=== PATIENT | female | born 1950 | race Caucasian/White ===

== ENCOUNTER → 2019-01-27 | Day surgery (SDC) | payer MEDICARE ==
[2019-01-24 12:01] LABS: BASOPHILS % 0.7 % (0.0-1.0); EOSINOPHILS # (AUTO) 0.1 (0.0-0.4); EOSINOPHILS % 1.9 % (0.0-6.0); HEMATOCRIT 41.7 % (34.2-44.1); HEMOGLOBIN 13.4 g/dL (12.0-16.0); MEAN CORPUSCULAR HEMOGLOBIN 29.8 pg (28-32); MEAN CORPUSCULAR HGB CONC 32.1 g/dL (31-35); MEAN CORPUSCULAR VOLUME 92.9 fL (81-99); MONOCYTES # (AUTO) 0.4 (0.2-0.8); MONOCYTES % 7.1 % (4.4-11.3); NEUTROPHILS # (AUTO) 3.3 (2.1-6.9); NEUTROPHILS % 56.1 % (38.7-80.0); PLATELET COUNT 237 x10e3/uL (140-360); RED BLOOD COUNT 4.49 x10e6/uL (3.6-5.1); RED CELL DISTRIBUTION WIDTH 13.7 % (11.7-14.4)
[2019-01-24 12:18] LABS: ANION GAP 11.6 mmol/L (8-16); BLOOD UREA NITROGEN 12 mg/dL (7-26); BUN/CREATININE RATIO 16 (6-25); CALCIUM 9.2 mg/dL (8.4-10.2); CARBON DIOXIDE 28 mmol/L (22-29); CHLORIDE 105 mmol/L (98-107); CREATININE, SERUM 0.77 mg/dL (0.57-1.11); EST GLOMERULAR FILTRATION RATE > 60 ML/MIN (60-); GLUCOSE 103 mg/dL (74-118); POTASSIUM 4.6 mmol/L (3.5-5.1); SODIUM 140 mmol/L (136-145)
--- NOTE | 2019-01-24 13:16 | Diagnostic Imaging Report ---
EXAMINATION: CHEST 2 VIEWS INDICATION: Pre-op. COMPARISON: None FINDINGS: Lateral radiograph is somewhat limited by motion. TUBES and LINES: None. LUNGS: Lungs are well inflated. Lungs are clear. There is no evidence of pneumonia or pulmonary edema. PLEURA: No pleural effusion or pneumothorax. HEART AND MEDIASTINUM: The cardiomediastinal silhouette is unremarkable. There are atherosclerotic calcifications within the aorta. BONES AND SOFT TISSUES: No acute osseous abnormality. Degenerative changes of bilateral shoulders. UPPER ABDOMEN: No free air under the diaphragm. IMPRESSION: No acute radiographic abnormality. Signed by: Dr. Almita Jordan MD on 01/24/2019 1:13 PM
[~2019-01-27] MED LIST: ASPIRIN325 MG PO; ATORVASTATIN CA20 MG PO; CLOPIDOGREL75 MG PO; CREON DR 24,001 EACH PO; DEXAMETHASONE SOD PHOS INJ 4 MG/ML VIAL ONE; DIPHENOXYLATE-1 EACH PO; FENTANYL CITRATE/PF 100MCG/2 ML INJ ONE; ISOSORBIDE MONO30 MG PO; KETOROLAC TROMETHAMINE 30 MG/ML VIAL ONE; LABETALOL HCL 5 MG/ML 20ML VIAL ONE; LIDOCAINE HCL 2% LOCAL INJ 5 ML SDV VIAL INJ ONE; LISINOPRIL10 MG PO; METFORMIN HCL500 MG PO; METOPROLOL TART50 MG PO; MIDAZOLAM HCL 2 MG/2 ML VIAL ONE; ONDANSETRON HCL INJ 2MG/ML 2ML 2 MG/ML VIAL ONE; PROPOFOL IV EMULSION 10 MG/ML 20 ML VIAL ONE; RANEXA500 MG PO; SEVOFLURANE INHAL SOLN 250 ML PEN BTL ONE; SILVER NITRATE SWABS ONE
--- OUTSIDE RECORDS SUMMARY | 2019-01-27 05:30 | XMS REPORT ---
Author Author [facility] Organization [facility] Address Unknown Phone Unavailable Care Team Providers Care Assistant Plant Controller Name Role Phone Elvis CARLIN Unavailable Unavailable Payers Payer Name Policy Type Policy Number Effective Date Expiration Date Problems This patient has no known problems. Allergies, Adverse Reactions, Alerts Allergy Name Allergy Type Status Severity Reaction(s) Onset Date Inactive Date Treating Clinician Comments penicillin DA Active U 2016-08-29 00:00:00 Medications This patient has no known medications. Results Test Description Test Time Test Comments Text Results Atomic Results Result Comments CHEST 2 VIEWS 2019-01-24 13:11:00 [facility] [address] [address] Patient Name: LEIGHTON FRAZIER MR #: [id number] : 1950 Age/Sex: 68/F Req #: [id number] Adm Physician: Ordered by: WILLIE CARLIN MD Report #: [id number] Location: OR Room/Bed: Procedure: [id number] DX/CHEST 2 VIEWS Exam Date: 01/24/19 Exam Time: 1110 REPORT STATUS: Signed EXAMINATION: CHEST 2 VIEWS INDICATION: Pre-op. COMPARISON: None FINDINGS: Lateral radiograph is somewhat limited by motion. TUBES and LINES: None. LUNGS: Lungs are well inflated. Lungs are clear. There is no evidence of pneumonia or pulmonary edema. PLEURA: No pleural effusion or pneumothorax. HEART AND MEDIASTINUM: The cardiomediastinal silhouette is unremarkable. There are atherosclerotic calcifications within the aorta. BONES AND SOFT TISSUES: No acute osseous abnormality. Degenerative changes of bilateral shoulders. UPPER ABDOMEN: No free air under the diaphragm. IMPRESSION: No acute radiographic abnormality. Signed by: Dr. Pam Maldonado MD on 01/24/2019 1:13 PM Dictated By: PAM MALDONADO MD [id number] Transcribed By: SVETA on 01/24/19 1313 COPY TO: WILLIE CARLIN MD
--- OUTSIDE RECORDS SUMMARY | 2019-01-27 05:30 | XMS REPORT | Clinical Summary ---
Author Author [facility] Organization [facility] Address Unknown Phone Unavailable Care Team Providers Care Respiratory Services Manager Name Role Phone Stephon Guzman DO PCP Allergies Comments Active Allergy Reactions Severity Noted Date Penicillins 09/02/2018 Medications End Date Status Medication Sig Dispensed Refills Start Date Active atorvastatin (LIPITOR) 80 Take 80 mg by 3 MG tablet mouth daily. 8 Active clopidogrel (PLAVIX) 75 Take 75 mg by 3 mg tablet mouth daily. 8 Active diphenoxylate-atropine Take 1 tablet 1 (LOMOTIL) 2.5-0.025 mg by mouth 8 per tablet every 12 (twelve) hours as needed. Active isosorbide mononitrate Take 30 mg by 0 (IMDUR) 30 MG 24 hr mouth daily. 8 tablet Active lisinopril Take 40 mg by 3 (PRINIVIL,ZESTRIL) 40 mg mouth daily. 8 tablet Active metFORMIN (GLUCOPHAGE) TAKE 1 TABLET 0 500 mg tablet BY MOUTH 8 EVERY DAY WITH MEALS Active metoprolol tartrate Take 50 mg by 3 (LOPRESSOR) 50 mg tablet mouth 2 (two) 8 times a day. Active oxybutynin (DITROPAN) 5 Take 5 mg by 3 MG tablet mouth daily. 8 Active pantoprazole (PROTONIX) Take 40 mg by 2 40 MG EC tablet mouth daily. 8 Active RANEXA 500 mg 12 hr ER Take 500 mg 1 tablet by mouth 8 daily. Active Problems No known active problems Encounters Care Team Description Date Type Specialty Kurt Corona MD Luczak, Swetha Cavazos, GURPREET Pain of lower extremity, unspecified laterality (Primary Dx); Venous insufficiency 09/02/2018 Office Visit Cardiovascular Lesley Bueno MA Swelling of lower leg (Primary Dx) 07/29/2018 Orders Only Cardiovascular after 01/26/2018 Family History Medical History Relation Name Comments Diabetes Brother Heart disease Father Cancer Mother Diabetes Sister Hypertension Sister Relation Name Status Comments Brother Father Mother Sister Social History Date Tobacco Use Types Packs/Day Years Used Never Smoker Smokeless Tobacco: Never Used Sex Assigned at Date Recorded Not on file Industry Job Start Date Occupation Not on file Not on file Not on file Travel End Travel History Travel Start No recent travel history available. Last Filed Vital Signs Time Taken Vital Sign Reading 09/02/2018 4:57 PM [employer] Blood Pressure 156/77 09/02/2018 4:57 PM [employer] Pulse 62 - Temperature - 09/02/2018 4:57 PM [employer] Respiratory Rate 12 09/02/2018 4:57 PM [employer] Oxygen Saturation 98% - Inhaled Oxygen - Concentration 09/02/2018 4:57 PM [employer] Weight 90.9 kg (200 lb 8 oz) 09/02/2018 4:57 PM CH[employer]EN F[employer] Height 154.9 cm (5' 1") 09/02/2018 4:57 PM [employer]EN [employer] Body Mass Index 37.88 Plan of Treatment Health Maintenance Due Date Last Done Comments BREAST CANCER SCREENING 1999 COLON CANCER SCREENING 1999 SHINGLES VACCINES (#1) 1999 65+ PNEUMOCOCCAL VACCINE 2014 (1 of 2 - PCV13) PNEUMOCOCCAL 2014 POLYSACCHARIDE VACCINE AGE 65 AND OVER INFLUENZA VACCINE 05/26/2019 Procedures Comments Procedure Name Priority Date/Time Associated Diagnosis US DUPLEX VENOUS LOWER Routine 09/02/2018 Swelling of lower leg EXTREMITY REFLUX 2:38 PM CHICKEN FANCIER BILATERAL after 01/26/2018 Results * Us duplex venous lower extremity reflux (09/02/2018 2:38 PM CHICKEN FANCIER) Narrative Performed At [facility] Lower Extremity Venous Duplex Report [address] [place] [address], [address], [place] [address] [facility].Name:Valentina JUSTICE.ID:[id number] St.Date: 09/02/2018 Refer.MD:KURT CORONA MD Exam Time: 1:27:00 PMStudy Type:LE Venous Height:61inWeight:200.5l b BSA: 1.89 m2 DOBAge:1950,68Y Sex: FEMALESonogrphr: Felisa Coats RVT TapeVol: TG, CPT - 4: 58938 Echo Event ID:[id number] Order ID:[id number] Reason for Study:Right lower extremity swelling and pain from the groin down to the knee. Bilateral lower extremity spider veins. Race:C SUMMARY: DUPLEX SCAN OBSERVATIONS The exam was performed with the patient in the steep reverse Trendelenburg position.Mckeon scale and color Doppler imaging of bilateral lower extremities demonstrates the following: Deep Veins RightLeft Valvular reflux CFV Incompetent Incompetent Normal < or equal to 500 ms Femoral mid PatentPatentAbnormal (Incompetent) > 500 ms Profunda Incompetent Patent Popliteal PatentPatent PT (prox) PatentPatent PT (dist) PatentPatent Peroneal Not visualized Not visualized Superficial Veins GSVIncompetent Incompetent (at and immediately below the saphenofemoral junction) (1100 ms) (2200 ms) GSV Patent Patent (thigh) GSV Patent Patent (lower leg) SSV Patent Patent (at and immediately below the saphenopopliteal junction) (0000 ms) (0000 ms) RIGHT:The above visualized veins are compressible with no evidence of echogenic material within the vein lumen. Colorflow and Doppler signals demonstrate valvular reflux in the common femoral, profunda femoral and great saphenous vein at the saphenofemoral junction.No incompetent perforating veins are noted. LEFT:The above visualized veins are compressible with no evidence of echogenic material within the vein lumen. Colorflow and Doppler signals demonstrate valvular reflux in the common femoral and great saphenous vein at the saphenofemoral junction.No incompetent perforating veins are noted. PHYSICIAN INTERPRETATION: 1. Peroneal veins not visualized, cannot rule out DVT in these veins bilaterally. 2.No evidence of venous thrombosis,in the remaining visualized veins, bilaterally. 3.Valvular reflux, right common femoral, profunda femoral, and great saphenous (above) knee veins. 4.Valvular reflux, left common femoral and great saphenous (above) knee veins. 5.Doppler signals obtained in the bilateral common femoral vein are comparable. 6.See table and diagram for vein measurements. 7. Technically difficult study due to body habitus and patients pain level. MEASUREMENTS: LEVEINS Left Dist Calf Dist Calf GSV A0.32 cm Right Dist Calf Dist Calf GSV A0.38 cm Left Prox Calf Prox Calf LSV A0.36 cm Prox Calf GSV A0.19 cm Right Prox Calf Prox Calf LSV A0.28 cm Prox Calf GSV A0.32 cm Left Popliteal Fossa Popliteal Fossa0.38 cm Right Popliteal Fossa Popliteal Fossa0.25 cm Left Prox Thigh Prox Thigh GSV0.4 cm Right Prox Thigh Prox Thigh GSV 0.39 cm Left Mid Thigh Mid Thigh GSV A0.31 cm Right Mid Thigh Mid Thigh GSV A 0.4 cm Left Knee Knee GSV AP 0.33 cm Right Knee Knee GSV AP 0.39 cm Left Mid Calf Mid Calf GSV AP0.23 cm Mid Calf LSV AP0.38 cm Right Mid Calf Mid Calf GSV AP 0.3 cm Mid Calf LSV AP0.25 cm Left SFJ SFJ GSV AP0.61 cm Right SFJ SFJ GSV AP 0.6 cm Left Distal Calf SSV Dist Calf LSV A0.32 cm Right Calf Dist SSV Dist Calf LSV A0.21 cm Left Dist Thigh Dist Thigh GSV 0.31 cm Right Dist Thigh Dist Thigh GSV 0.42 cm Signed 09/17/2018 05:47 PM Kurt Corona MD, RPVI Procedure Note Interface, Radiology Results In - 09/17/2018 5:47 PM [facility] Lower Extremity Venous Duplex Report [address] [place] [address], [address], [place], [place] [address] Pat.Name: ITZEL JUSTICE Pat.ID: [id number] .Date: 09/02/2018 Refer.MD: KURT CORONA MD Exam Time: 1:27:00 PM Study Type:LE Venous Height: 61in Weight: 200.5lb BSA: 1.89 m2 Age: 10 1950,68Y Sex: FEMALE Sonogrphr: Felisa Coats, RVT Tape Vol: TG, CPT - 4: 13369 Echo Event ID:[id number] Order ID: [id number] Reason for Study:Right lower extremity swelling and pain from the groin down to the knee. Bilateral lower extremity spider veins. Race: C SUMMARY: DUPLEX SCAN OBSERVATIONS The exam was performed with the patient in the steep reverse Trendelenburg position. Mckeon scale and color Doppler imaging of bilateral lower extremities demonstrates the following: Deep Veins Right Left Valvular reflux CFV Incompetent Incompetent Normal < or equal to 500 ms Femoral mid Patent Patent Abnormal (Incompetent) > 500 ms Profunda Incompetent Patent Popliteal Patent Patent PT (prox) Patent Patent PT (dist) Patent Patent Peroneal Not visualized Not visualized Superficial Veins GSV Incompetent Incompetent (at and immediately below the saphenofemoral junction) (1100 ms) (2200 ms) GSV Patent Patent (thigh) GSV Patent Patent (lower leg) SSV Patent Patent (at and immediately below the saphenopopliteal junction) (0000 ms) (0000 ms) RIGHT: The above visualized veins are compressible with no evidence of echogenic material within the vein lumen. Colorflow and Doppler signals demonstrate valvular reflux in the common femoral, profunda femoral and great saphenous vein at the saphenofemoral junction. No incompetent perforating veins are noted. LEFT: The above visualized veins are compressible with no evidence of echogenic material within the vein lumen. Colorflow and Doppler signals demonstrate valvular reflux in the common femoral and great saphenous vein at the saphenofemoral junction. No incompetent perforating veins are noted. PHYSICIAN INTERPRETATION: 1. Peroneal veins not visualized, cannot rule out DVT in these veins bilaterally. 2. No evidence of venous thrombosis, in the remaining visualized veins, bilaterally. 3. Valvular reflux, right common femoral, profunda femoral, and great saphenous (above) knee veins. 4. Valvular reflux, left common femoral and great saphenous (above) knee veins. 5. Doppler signals obtained in the bilateral common femoral vein are comparable. 6. See table and diagram for vein measurements. 7. Technically difficult study due to body habitus and patients pain level. MEASUREMENTS: LEVEINS Left Dist Calf Dist Calf GSV A 0.32 cm Right Dist Calf Dist Calf GSV A 0.38 cm Left Prox Calf Prox Calf LSV A 0.36 cm Prox Calf GSV A 0.19 cm Right Prox Calf Prox Calf LSV A 0.28 cm Prox Calf GSV A 0.32 cm Left Popliteal Fossa Popliteal Fossa 0.38 cm Right Popliteal Fossa Popliteal Fossa 0.25 cm Left Prox Thigh Prox Thigh GSV 0.4 cm Right Prox Thigh Prox Thigh GSV 0.39 cm Left Mid Thigh Mid Thigh GSV A 0.31 cm Right Mid Thigh Mid Thigh GSV A 0.4 cm Left Knee Knee GSV AP 0.33 cm Right Knee Knee GSV AP 0.39 cm Left Mid Calf Mid Calf GSV AP 0.23 cm Mid Calf LSV AP 0.38 cm Right Mid Calf Mid Calf GSV AP 0.3 cm Mid Calf LSV AP 0.25 cm Left SFJ SFJ GSV AP 0.61 cm Right SFJ SFJ GSV AP 0.6 cm Left Distal Calf SSV Dist Calf LSV A 0.32 cm Right Calf Dist SSV Dist Calf LSV A 0.21 cm Left Dist Thigh Dist Thigh GSV 0.31 cm Right Dist Thigh Dist Thigh GSV 0.42 cm Signed 09/17/2018 05:47 PM Kurt Corona MD, VI Performing Organization Address City/State/Zipcode Phone Number [facility] [address] [place] [address] after 01/26/2018 Insurance Payer Benefit Subscriber ID Type Phone Address Plan / Group [employer] CIGNA xxxxxxxx O HEALTHSPRI NG O MCR ADV Advance Directives Patient has advance care planning documents on file. For more information, esme thompson contact: Yair Mora [address] [place] [address]
[2019-01-27 11:30] VITALS: BP 174/78
--- NOTE | 2019-02-11 03:43 | Operative Report ---
DATE OF PROCEDURE: 01/27/2019 SURGEON: Olya Doran MD DENTAL LABORATORY ASSISTANT: None. PREOPERATIVE DIAGNOSES: Endometrial polyp. POSTOPERATIVE DIAGNOSES: Endometrial polyp. PROCEDURE PERFORMED: Dilatation and curettage, and hysteroscopic polypectomy. ANESTHESIA: General. ESTIMATED BLOOD LOSS: 30 mL. COMPLICATIONS: None. FINDINGS: Large endometrial polyp. SPECIMENS: Endometrial polyp with curettings. INDICATIONS: The patient is a 68-year-old postmenopausal female, having postmenopausal bleeding and noted during endometrial biopsy in the office to have a large endometrial polyp that could not be removed within the office setting. PROCEDURE NOTE: The risks, benefits, indications, and alternatives of the procedure were discussed with the patient and consent was obtained. The patient was taken to the operating room, where general anesthesia was obtained. The patient was prepped and draped in typical sterile fashion in the dorsal lithotomy position with candy-cane stirrups. Time-out was done. The patient's bladder was drained with straight catheter prior to the procedure. A weighted speculum was then placed in the vagina and the anterior lip of the cervix was grasped with single tooth tenaculum. The cervix was then sequentially dilated with Hegar dilators in order to advance the TruClear hysteroscope to level the uterine fundus, uterine cavity, was distended with normal saline and explored with the above noted findings. The TruClear device was then used to morcellate and remove the polyps under direct visualization. A sharp curettage was then performed and all curettings were sent for pathology. A survey of the uterine cavity then revealed a normal appearing and intact cavity. All instruments were removed from the patient's vagina. The tenaculum site on the cervix was noted to be bleeding and 2 separate 0-Vicryl sutures were placed at the tenaculum sites in order to ensure hemostasis. The patient was then awakened and brought to the recovery room in stable condition. All sponge, lap, needle, and instrument counts were correct x2. Olya Doran MD [facility]/MODL /[id number]
== END | disposition home or self-care (01) ==
LOC: OR 05:29
PROVIDERS: ATTEND Obstetrics & Gynecology Obstetrics
DX: N84.0 Polyp of corpus uteri (principal); N95.0 Postmenopausal bleeding; R93.89 Abnormal findings on diagnostic imaging of other specified body structures; E11.9 Type 2 diabetes mellitus without complications; Z88.0 Allergy status to penicillin; Z01.810 Encounter for preprocedural cardiovascular examination; Z01.812 Encounter for preprocedural laboratory examination; Z01.811 Encounter for preprocedural respiratory examination; Z79.84 Long term (current) use of oral hypoglycemic drugs
CPT/HCPCS: 36415 ×2; 58558; 71046; 80048; 82948; 85025; 88305; 93005; J1100; J1885; J2001; J2250; J2405; J2704; J3490

== ENCOUNTER 2019-03-08 06:06 | Inpatient (IN) | payer MEDICARE ==
[2019-03-07 11:32] LABS: BASOPHILS % 0.6 % (0.0-1.0); EOSINOPHILS # (AUTO) 0.1 (0.0-0.4); EOSINOPHILS % 1.7 % (0.0-6.0); HEMATOCRIT 36.8 % (34.2-44.1); HEMOGLOBIN 11.9 g/dL (12.0-16.0); LYMPHOCYTES # (AUTO) 1.3 (1.0-3.2); MEAN CORPUSCULAR HEMOGLOBIN 29.7 pg (28-32); MEAN CORPUSCULAR HGB CONC 32.3 g/dL (31-35); MEAN CORPUSCULAR VOLUME 91.8 fL (81-99); MONOCYTES # (AUTO) 0.3 (0.2-0.8); MONOCYTES % 5.7 % (4.4-11.3); NEUTROPHILS # (AUTO) 3.1 (2.1-6.9); NEUTROPHILS % 64.8 % (38.7-80.0); PLATELET COUNT 206 x10e3/uL (140-360); RED BLOOD COUNT 4.01 x10e6/uL (3.6-5.1); RED CELL DISTRIBUTION WIDTH 13.4 % (11.7-14.4)
[2019-03-07 11:47] LABS: ANION GAP 12.2 mmol/L (8-16); BLOOD UREA NITROGEN 13 mg/dL (7-26); BUN/CREATININE RATIO 17 (6-25); CALCIUM 9.1 mg/dL (8.4-10.2); CARBON DIOXIDE 27 mmol/L (22-29); CHLORIDE 107 mmol/L (98-107); CREATININE, SERUM 0.76 mg/dL (0.57-1.11); EST GLOMERULAR FILTRATION RATE > 60 ML/MIN (60-); GLUCOSE 99 mg/dL (74-118); POTASSIUM 4.2 mmol/L (3.5-5.1); SODIUM 142 mmol/L (136-145)
[~2019-03-08] VITALS: Ht 154.9 cm; Wt 92.5 kg
[~2019-03-08 06:06] MED LIST changes: -DEXAMETHASONE SOD PHOS INJ 4 MG/ML VIAL ONE; -FENTANYL CITRATE/PF 100MCG/2 ML INJ ONE; -KETOROLAC TROMETHAMINE 30 MG/ML VIAL ONE; -LABETALOL HCL 5 MG/ML 20ML VIAL ONE; -LIDOCAINE HCL 2% LOCAL INJ 5 ML SDV VIAL INJ ONE; -MIDAZOLAM HCL 2 MG/2 ML VIAL ONE; -ONDANSETRON HCL INJ 2MG/ML 2ML 2 MG/ML VIAL ONE; -PROPOFOL IV EMULSION 10 MG/ML 20 ML VIAL ONE; -SEVOFLURANE INHAL SOLN 250 ML PEN BTL ONE; -SILVER NITRATE SWABS ONE
--- OUTSIDE RECORDS SUMMARY | 2019-03-08 06:10 | XMS REPORT | Clinical Summary ---
Author Author [facility] Organization [facility] Address Unknown Phone Unavailable Care Team Providers Care Improvement Analyst Name Role Phone Stephon Guzman DO PCP [...] (Primary Dx) 07/29/2018 Orders Only Cardiovascular after 03/07/2018 Family History Medical History Relation Name Comments [...] Taken Vital Sign Reading 09/02/2018 4:57 PM MINE INSPECTOR Blood Pressure 156/77 09/02/2018 4:57 PM MINE INSPECTOR Pulse 62 - Temperature - 09/02/2018 4:57 PM MINE INSPECTOR Respiratory Rate 12 09/02/2018 4:57 PM MINE INSPECTOR Oxygen Saturation 98% - Inhaled Oxygen - Concentration 09/02/2018 4:57 PM MINE INSPECTOR Weight 90.9 kg (200 lb 8 oz) 09/02/2018 4:57 PM MINE INSPECTOR Height 154.9 cm (5' 1") 09/02/2018 4:57 PM MINE INSPECTOR Body Mass Index 37.88 Plan of Treatment [...] of lower leg EXTREMITY REFLUX 2:38 PM MINE INSPECTOR BILATERAL after 03/07/2018 Results * Us duplex venous lower extremity reflux (09/02/2018 2:38 PM MINE INSPECTOR) Narrative Performed At [facility] Lower Extremity Venous Duplex Report [address] [place] [address], [address], [place] [address] [facility].Name:Valentina JUSTICE.ID:[id number] St.Date: 09/02/2018 Refer.MD:KURT CORONA MD Exam Time: 1:27:00 PMStudy Type:LE Venous Height:61inWeight:200.5l b BSA: 1.89 m2 DOBAge:1950,68Y Sex: FEMALESonogrphr: Felisa Coats RVT TapeVol: TG, CPT - 4: 88004 Echo Event ID:[id number] Order ID:[id number] Reason for Study:Right lower extremity swelling and [...] Radiology Results In - 09/17/2018 5:47 PM [facility] Lower Extremity Venous Duplex Report [address] [place] [address], [address], [place], [place] [address] Pat.Name: ITZEL JUSTICE Pat.ID: [id number] .Date: 09/02/2018 Refer.MD: KURT CORONA MD Exam Time: 1:27:00 PM Study Type:LE Venous Height: 61in Weight: 200.5lb BSA: 1.89 m2 Age: 10 1950,68Y Sex: FEMALE Sonogrphr: Felisa Coats, RVT Tape Vol: TG, CPT - 4: 80469 Echo Event ID:[id number] Order ID: [id number] Reason for Study:Right lower extremity swelling and [...] Address City/State/Zipcode Phone Number [facility] [address] [place] [address] after 03/07/2018 Insurance Payer Benefit Subscriber ID Type Phone Address Plan / Group [employer] CIGNA xxxxxxxx O HEALTHSPRI NG O MCR ADV Advance Directives Patient has advance care planning documents on file. For more information, esme thompson contact: Yair Mora [address] [place] [address]
[2019-03-08] MEDS ORDERED: CELECOXIB 200 MG CAP ONE (06:29)
[2019-03-08] MEDS ORDERED: DEXAMETHASONE SOD PHOS 10 MG/1 ML VIAL ONE (06:29)
[2019-03-08] MEDS ORDERED: VANCOMYCIN 1GM/NS 250 ML 250 ML ONE (06:30)
[2019-03-08] MEDS ORDERED: GABAPENTIN 300 MG CAP ONE (06:30)
[2019-03-08] MEDS ORDERED: VANCOMYCIN HCL 1,000 MG ONE (06:42)
[2019-03-08] MEDS ORDERED: TRANEXAMIC ACID 1,000 MG/10 ML ML ONE (06:42)
[2019-03-08] MEDS ORDERED: BACITRACIN 50,000 UNIT VIAL ONE (06:43)
[2019-03-08] MEDS ORDERED: ROPIVACAINE 246.25 MG, EPINEPHRINE HCL 1:1000 1ML 0.5 MG, CLONIDINE HCL 0.08 MG, KETORO... INJ ONE ×5 (07:00)
[2019-03-08] MEDS ORDERED: SODIUM CHLORIDE 0.9% 500ML 500 ML ONE (07:04)
[2019-03-08] MEDS ORDERED: BUPIVACAINE 7.5MG/ML /DEXTROSE 82.5MG/ML 2 ML AMP INJ ONE (07:32)
[2019-03-08] MEDS: SODIUM CHLORIDE 0.9% 1000ML 1,000 ML IV SCH ×2 (09:24→17:35)
[2019-03-08] MEDS: VANCOMYCIN 1GM/NS 250 ML 250 ML IV SCH ×2 (09:30→21:17)
[2019-03-08] MEDS ORDERED: DIPHENHYDRAMINE HCL INJ 50 MG/ML VIAL IM/IV PRN (09:30)
[2019-03-08] MEDS ORDERED: KETOROLAC TROMETHAMINE 30 MG/ML VIAL IV PRN (09:30)
[2019-03-08] MEDS ORDERED: PROMETHAZINE HCL (IM) 25 MG/ML VIAL INJ PRN (09:30)
[2019-03-08] MEDS ORDERED: ONDANSETRON HCL INJ 2MG/ML 2ML 2 MG/ML VIAL IV PRN (09:30)
[2019-03-08] MEDS ORDERED: HYDROCODONE/APAP 5MG-325MG TAB PO PRN (09:30)
[2019-03-08] MEDS ORDERED: ACETAMINOPHEN 650 MG SUPP PR PRN (09:30)
[2019-03-08] MEDS ORDERED: DOCUSATE SODIUM 100 MG CAP PO PRN (09:30)
--- OUTSIDE RECORDS SUMMARY | 2019-03-08 10:49 | XMS REPORT | Clinical Summary ---
Author Author [facility] Organization [facility] Address Unknown Phone Unavailable Care Team Providers Care Associate Merchandise Planner Name Role Phone Stephon Guzman DO PCP [...] Taken Vital Sign Reading 09/02/2018 4:57 PM CLOUD AUTOMATION TESTER Blood Pressure 156/77 09/02/2018 4:57 PM CLOUD AUTOMATION TESTER Pulse 62 - Temperature - 09/02/2018 4:57 PM CLOUD AUTOMATION TESTER Respiratory Rate 12 09/02/2018 4:57 PM CLOUD AUTOMATION TESTER Oxygen Saturation 98% - Inhaled Oxygen - Concentration 09/02/2018 4:57 PM CLOUD AUTOMATION TESTER Weight 90.9 kg (200 lb 8 oz) 09/02/2018 4:57 PM CLOUD AUTOMATION TESTER Height 154.9 cm (5' 1") 09/02/2018 4:57 PM CLOUD AUTOMATION TESTER Body Mass Index 37.88 Plan of Treatment [...] of lower leg EXTREMITY REFLUX 2:38 PM CLOUD AUTOMATION TESTER BILATERAL after 03/07/2018 Results * Us duplex venous lower extremity reflux (09/02/2018 2:38 PM CLOUD AUTOMATION TESTER) Narrative Performed At [facility] Lower Extremity Venous Duplex Report [address] [place] [address], [address], [place] [address] [facility].Name:Valentina JUSTICE.ID:[id number] St.Date: 09/02/2018 Refer.MD:KURT CORONA MD Exam Time: 1:27:00 PMStudy Type:LE Venous Height:61inWeight:200.5l b BSA: 1.89 m2 DOBAge:1950,68Y Sex: FEMALESonogrphr: Felisa Coats RVT TapeVol: TG, CPT - 4: 93367 Echo Event ID:[id number] Order ID:[id number] Reason for Study:Right lower extremity swelling and [...] Radiology Results In - 09/17/2018 5:47 PM [facility] Lower Extremity Venous Duplex Report [address] [place] [address], [address], [place], [place] [address] Pat.Name: ITZEL JUSTICE Pat.ID: [id number] .Date: 09/02/2018 Refer.MD: KURT CORONA MD Exam Time: 1:27:00 PM Study Type:LE Venous Height: 61in Weight: 200.5lb BSA: 1.89 m2 Age: 10 1950,68Y Sex: FEMALE Sonogrphr: Felisa Coats, RVT Tape Vol: TG, CPT - 4: 49480 Echo Event ID:[id number] Order ID: [id number] Reason for Study:Right lower extremity swelling and [...] Address City/State/Zipcode Phone Number [facility] [address] [place] [address] after 03/07/2018 Insurance Payer Benefit Subscriber ID Type Phone Address Plan / Group [employer] CIGNA xxxxxxxx O HEALTHSPRI NG O MCR ADV Advance Directives Patient has advance care planning documents on file. For more information, esme thompson contact: Yair Mora [address] [place] [address]
--- NOTE | 2019-03-08 11:13 | Diagnostic Imaging Report ---
Exam: Pelvis single frontal view History: Postop Comparison: None. Findings: See impression Impression: Status post total right hip are placement with intact acetabular and femoral components. No periprosthetic displaced fracture. Expected subcutaneous gas and overlying skin mallory. Signed by: Dr. Ryan May M.D. on 03/08/2019 11:10 AM
--- NOTE | 2019-03-08 11:15 | NUR ---
RECIEVED PATIENT FROM RECOVERY. PATIENT A/O X3, EVEN RESPIRATIONS ON RA. RIGHT HIP DRESSING CLEAN DRY AND INTACT. WOUND VAC DRESSING IN PLACE. FOOT PUMPS IN PLACE BILATERALLY. BRIELLE HOSE ON LEFT LEG. HIP PILLOW IN PLACE. NO SIGNS OF DISTRESS. VITAL SIGNS STABLE. BED LOW, WHEELS LOCKED, SIDE RAILS X2, CALL LIGHT IN REACH. WILL CONTINUE TO MONITOR PATIENT.
[2019-03-08] MEDS: ACETAMINOPHEN 1000 MG/100 ML IV SCH ×3 (12:08→23:53)
[2019-03-08 12:35] VITALS: BP 146/67
[2019-03-08 12:36] VITALS: BP 146/67
--- NOTE | 2019-03-08 12:38 | NUR ---
PATIENT DME AND HOME HEALTH COMPANIES PRE-ARRANGED BY DR. MOREIRA'S OFFICE. PATIENT WITH HOME HEALTH AND DME CONTACT INFORMATION. PATIENT AWARE TO CALL CM IF ANY PROBLEMS OCCUR WITHIN 3 DAYS POST- DISCHARGE. HOME HEALTH EXPLAINED IN DEPTH WITH SERVICES PROVIDED. PATIENT VERBALLY UNDERSTOOD. THE FOLLOWING HOME HEALTH AND DME COMPANY VERIFIED PATIENT IS ON SERVICE WITH THEM: [facility] ([facility]- [facility]) [phone] (F) [phone] CM CALLED AND SPOKE TO [facility] TO CONFIRM PATIENT ACCEPTANCE. PATIENT CONFIRMED ACCEPTANCE WITH [facility] OFFICE. PATIENT TO BEGIN SERVICES 03/10. THERAPY SUPPLY HOUSE: ([facility], [employer]ALKER WITH WHEELS, [employer]) (P) [phone] (F) [phone] CM CALLED AND CONFIRMED THAT PATIENT IS CONFIRMED AND WILL HAVE EQUIPMENT DELIVERED DAY AFTER DISCHARGE.
[2019-03-08 12:47] VITALS: BP 146/67
[2019-03-08] MEDS ORDERED: [UNRECOGNIZED DRUG - OTHER] PO SCH (13:00)
[2019-03-08] MEDS ORDERED: AMYLASE PO SCH (13:00)
[2019-03-08] MEDS ORDERED: LIPASE PO SCH (13:00)
[2019-03-08] MEDS ORDERED: PROTEASE PO SCH (13:00)
[2019-03-08] MEDS: AMYLAS/CELLU/LIPAS/PROTEA/BILE 12,000 UNIT CAP PO SCH ×3 (13:59→20:44)
--- NOTE | 2019-03-08 14:15 | NUR ---
Visit made by the Spiritual Care Department Pastoral Visitor, Claudia Guerra. PV provided pastoral presence, prayer, hospitality, and supportive listening. Pastoral Visitor informed pt/family of the scope of [employer] and availability. IGOR GARCIA Metal Welder Spiritual Care Department O: [phone] Pager: [phone] ([phone] number calling from)
[2019-03-08] MEDS ORDERED: KETAMINE HCL INJ 50 MG/ML 10 ML VIAL ONE (14:24)
[2019-03-08] MEDS ORDERED: MIDAZOLAM HCL 2 MG/2 ML VIAL ONE (14:24)
[2019-03-08] MEDS ORDERED: FENTANYL CITRATE/PF 100MCG/2 ML INJ ONE (14:24)
--- NOTE | 2019-03-08 15:20 | NUR ---
PATIENT HAS VOIDED SINCE SURGERY.
--- NOTE | 2019-03-08 15:42 | NUR ---
PATIENT WALKED 110 FT WITH PT.
--- NOTE | 2019-03-08 15:43 | Operative Report ---
DATE OF PROCEDURE: 03/08/2019 SURGEON: Ryan Guzman MD TIMBER SUPERVISOR: Leonardo Fields PA-C. PREOPERATIVE DIAGNOSIS: Osteoarthritis, right hip. POSTOPERATIVE DIAGNOSIS: Osteoarthritis, right hip. PROCEDURE: Right total hip arthroplasty. Added complexity secondary to BMI of 39.3. INDICATIONS: The patient is a 68-year-old lady, who has signs and symptoms of advanced osteoarthritis involving her right hip. She has failed conservative management. She would like to proceed with a right total hip replacement. The added challenges due to her BMI right at 40 were explained. The added risk of perioperative complications was explained. She states she understands and wishes to proceed. PROCEDURE IN DETAIL: The patient was brought to the operating room and given a spinal anesthetic. She was positioned in the left lateral decubitus position. Throughout the case, added time and personnel were necessary due to the patient's morbid obesity. Most of her weight was centered around her pelvic region. She was ultimately positioned in a well-padded lateral positioner. Her right hip was prepped and draped in a sterile manner. A preoperative time-out was performed. A more extensile incision was made than normal for a posterior approach to the right hip. Hemostasis was obtained with electrocautery. A deep self-retaining Charnley retractor was placed. The posterior capsule was more challenging to visualize and release due to the altered surgical field. The short external rotators were released. The capsule was released. The hip was dislocated. An oscillating saw was used to resect the femoral head. The bone quality was soft. Acetabular retractors were carefully placed. Difficulty was encountered as the bone was soft and the initial placement of the acetabular retractor cut out of the anterior wall. Ultimately, the socket was cleanly visualized. The true floor of the acetabulum was established with a 46 mm reamer. The socket was then sequentially reamed up to 53 mm. This accomplished bleeding hemispherical cancellous bone. A Mary Biomet 54 mm outer diameter Osteo T socket was then seated into place. Fixation was augmented with a single 25 mm screw placed into the ilium. The hip was thoroughly irrigated on multiple occasions with a shower tip pulsatile lavage and a mixture of polymyxin and vancomycin spray. A portion of a 100 mL premixed pericapsular BOYD injection was placed around the capsule. A highly cross-linked polyethylene liner was then seated into place. Care was taken to make sure that there was no evidence of soft tissue interposition. The socket was packed with a moist soaked lap sponge and then attention was directed towards the proximal femur. Again, some added challenges were encountered exposing the proximal femur. A box cutting osteotome and taper pin reamer were used to establish entry to the femoral canal. The Taperloc broaches were then impacted into place. A size 12 stem had good canal fill and rotational stability for trial reduction. A standard 36 mm head was felt to provide appropriate soft tissue balancing, stability and faith of limb length. The trial implants were removed. The hip was further irrigated with a pulsatile lavage and the remainder of the BOYD injection was placed into the subcutaneous tissue. The implant was seated and a standard 36 mm ceramic head and sleeve were seated onto the clean and dry stem. A final reduction was performed. The posterior capsule was carefully repaired with #2 Ethibond. The iliotibial band and gluteal fascia were closed with interrupted #2 Ethibond. The skin was closed with subcuticular Vicryl and mallory. A sterile wound VAC was applied due to the abundant subcutaneous adipose tissue. The patient was returned to the supine position. She was transported to the recovery room in stable condition. Estimated blood loss was 75 mL. At the end of the procedure, all needle and sponge counts were correct. Ryan Guzman MD DR/DAVID /[id number]
[2019-03-08 16:47] VITALS: BP 169/74
[2019-03-08] MEDS: CELECOXIB 100 MG CAP PO SCH (17:34)
[2019-03-08] MEDS: ASPIRIN 325 MG TAB PO SCH (17:34)
[2019-03-08] MEDS: METOPROLOL TARTRATE 50 MG TAB PO SCH (17:35)
[2019-03-08] MEDS ORDERED: ONDANSETRON HCL INJ 2MG/ML 2ML 2 MG/ML VIAL ONE (18:18)
[2019-03-08] MEDS ORDERED: PROPOFOL IV EMULSION 10 MG/ML 20 ML VIAL ONE (18:18)
[2019-03-08] MEDS ORDERED: DEXAMETHASONE SOD PHOS INJ 4 MG/ML VIAL ONE (18:18)
[2019-03-08] MEDS ORDERED: LIDOCAINE HCL 2% LOCAL INJ 5 ML SDV VIAL INJ ONE (18:18)
[2019-03-08 20:00] VITALS: BP 187/76
[2019-03-08] MEDS: HYDROCODONE/APAP 7.5MG-325MG 1 EA TAB PO PRN (20:54)
[2019-03-08 21:00] VITALS: BP 119/56
[2019-03-08] MEDS ORDERED: ZOLPIDEM TARTRATE 5 MG TAB PO PRN (21:00)
[2019-03-08] MEDS ORDERED: ATORVASTATIN 20 MG TAB PO SCH (21:00)
[2019-03-08] MEDS ORDERED: ATORVASTATIN 40 MG TAB PO SCH (21:00)
--- NOTE | 2019-03-08 21:10 | NUR ---
Assessment done .no rep.distress.pain voiced 05/04.pain medication given.right hip dressing is dry.wound vac is in place.ambulates with walker and assistance.voided.bed locked and in lowest position.phone and call light within reach.informed to call for assistance as needed.
[2019-03-09 00:10] VITALS: BP 155/68
--- NOTE | 2019-03-09 03:56 | Consultation ---
DATE OF CONSULTATION: HISTORY OF PRESENT ILLNESS: A 68-year-old female, comes in status post right hip replacement. The patient's consult was done for medical comanagement. The patient is a 68-year-old female with a history of coronary artery disease status post ME, status post RCA stent with EF of 55% was seen and had a right hip replacement. The patient is currently asymptomatic. The patient's other medical history includes diabetes mellitus, history of myocardial infarction as mentioned above, history of hyperlipidemia, history of hypertension, history of coronary artery disease a.m. MEDICINES: She takes at home are: 1. Aspirin 325 mg. 2. Clopidogrel 75 mg. 3. Isosorbide mononitrate mg. 4. Lisinopril 40 mg. 5. Metoprolol 50 mg. 6. Atorvastatin 80 mg. 7. Ranexa 500 mg. 8. Metformin ER once a day. PAST SURGICAL HISTORY: Noncontributory. REVIEW OF SYSTEMS: Negative for chest pain. No shortness of breath. No nausea, vomiting, or diarrhea. No constipation. No rectal bleeding. Pain has been controlled. The patient's laboratory values pending for tomorrow. ASSESSMENT: 1. Right hip arthroplasty. 2. Continue with postoperative care. 3. Restart her home medications for coronary artery disease. We will monitor the patient's H and H and electrolytes. Further recommendation per clinical course. We will continue following the patient along with Dr. Guzman. MD MARCUS GoldmanJ/MODL /[id number]
[2019-03-09 04:00] VITALS: BP 124/60
--- NOTE | 2019-03-09 04:52 | NUR ---
Threw up 100cc greenish colored vomitus.medicated with zofran 4mg iv.keep monitor the pt. Addendum: 03/11/19 at 1904 by Arin Durham RN WRONG PATIENT.
[2019-03-09] MEDS: SODIUM CHLORIDE 0.9% 1000ML 1,000 ML IV SCH (05:24)
[2019-03-09] MEDS: ACETAMINOPHEN 1000 MG/100 ML IV SCH (05:27)
[2019-03-09 06:10] LABS: HEMATOCRIT 31.3 % (34.2-44.1); HEMOGLOBIN 10.2 g/dL (12.0-16.0)
--- NOTE | 2019-03-09 06:50 | NUR ---
Report given to the oncoming rn.walking rounds done.stable condition.
--- NOTE | 2019-03-09 07:00 | NUR ---
bedside rounds complete no distress noted, updated on poc voiced understanding, r fa 20g no ss of infiltration noted, no other co voiced co pain will medicated with prn meds, call light in reach will continue to monitor
--- NOTE | 2019-03-09 08:02 | Progress Note ---
DATE: SUBJECTIVE: The patient is a 68-year-old female, status post right hip arthroplasty. Currently, asymptomatic. Pain under control. The patient is taking hydrocodone. ACTIVE MEDICATIONS: Include atorvastatin, Celebrex, hydrocodone, isosorbide, ketorolac injections as needed, lisinopril, metoprolol, promethazine, Ranexa, sodium chloride, and zolpidem. OBJECTIVE: VITAL SIGNS: Temperature is 96.8, pulse of 60, respirations of 20, blood pressure is 124/60, and pulse oximetry of 95%. HEENT: Normocephalic, atraumatic. Pupils are reactive to light and accommodation. CVS: S1, S2 normal. Regular rate and rhythm. LUNGS: Clear to auscultation bilaterally. EXTREMITIES: No clubbing, no cyanosis, no lymphedema. The patient's right hip, wound clean. Wound VAC in place. LABORATORY VALUES: Today's hemoglobin is 10.2, hematocrit of 31.3. Chemistries; sodium of 142, potassium 4.2, BUN of 13, creatinine 0.76. GFR is above 60. ASSESSMENT: Status post right hip arthroplasty. PLAN: Continue with current postoperative care. The patient will get physical therapy. Wound VAC in place. For her coronary artery disease, continue with Ranexa, continue with Imdur, continue with beta-blockade and statin for hyperlipidemia. The patient is also on lisinopril. Continue with the same. Further recommendation and clinical course, the patient is medically stable and can continue physical therapy as recommended by ortho. MD DANIEL Goldman/MELANIEL /[id number]
[2019-03-09 08:18] VITALS: BP 138/63
[2019-03-09] MEDS: ASPIRIN 325 MG TAB PO SCH (08:18)
[2019-03-09] MEDS: AMYLAS/CELLU/LIPAS/PROTEA/BILE 12,000 UNIT CAP PO SCH ×2 (08:18→12:38)
[2019-03-09] MEDS: CELECOXIB 100 MG CAP PO SCH (08:18)
[2019-03-09] MEDS: HYDROCODONE/APAP 7.5MG-325MG 1 EA TAB PO PRN (08:18)
[2019-03-09] MEDS: METOPROLOL TARTRATE 50 MG TAB PO SCH (08:18)
[2019-03-09] MEDS ORDERED: LISINOPRIL 20 MG TAB PO SCH (09:00)
[2019-03-09] MEDS ORDERED: ISOSORBIDE MONONITRATE 30 MG TAB CR PO SCH (09:00)
[2019-03-09] MEDS ORDERED: LISINOPRIL 10 MG TAB PO SCH (09:00)
[2019-03-09] MEDS ORDERED: ONDANSETRON HCL 4 MG ORAL DISINTEGRATING TAB PO PRN (09:00)
[2019-03-09] MEDS ORDERED: RANOLAZINE 500 MG TABSR PO SCH (09:00)
[2019-03-09] MEDS ORDERED: ACETAMINOPHEN 1000 MG/100 ML IV PRN (09:30)
--- NOTE | 2019-03-09 10:23 | NUR ---
CM SPOKE TO PATIENT AT BEDSIDE REGARDING IMM LETTER. IMM LETTER GIVEN WITH EXPLANATION BASED ON ANTICIPATED DISCHARGE DATE. ORIGINAL SIGNED AND PLACED IN CHART; COPY OF ORIGINAL DOCUMENT GIVEN TO PATIENT AT BEDSIDE AND PLACED IN CARE TRANSITION FOLDER. CM CONTACT INFORMATION GIVEN TO PATIENT FOR ANY NEEDS OR CONCERNS. PATIENT WITH NO FURTHER QUESTIONS.
--- NOTE | 2019-03-09 12:41 | NUR ---
EDUCATED ABOUT IMM, SIGNED, FILED IN CHART, WITH COPY LEFT WITH FAMILY AT BEDSIDE. Addendum: 03/09/19 at 1242 by Kalyn Abraham CM DISREGARD PREVIOUS NOTE PLEASE
[2019-03-09 12:55] VITALS: BP 145/64
--- NOTE | 2019-03-09 13:25 | NUR ---
DC INSTRUCTIONS GIVEN VOICED UNDERSTANDING, IV DC'D COVERED WITH 2X2 AND TAPE, PT AWAITING RIDE,
[2019-03-09] MEDS ORDERED: CELECOXIB 200 MG CAP PO SCH (17:00)
== END 2019-03-09 13:57 | disposition home health service (06) | DRG 470 ==
LOC: OR 06:06 → PACU V 09:26 → MED/SURG 11:05
PROVIDERS: ADMIT Specialist; ATTEND Specialist
PROC: 0SR906A Replacement of Right Hip Joint with Oxidized Zirconium on Polyethylene Synthetic Substitute, Uncemented, Open Approach (ICD-10-PCS; principal; 2019-03-08 08:00)
DX: M16.11 Unilateral primary osteoarthritis, right hip (principal); I25.10 Atherosclerotic heart disease of native coronary artery without angina pectoris; M1A.9XX0 Chronic gout, unspecified, without tophus (tophi); I10 Essential (primary) hypertension; K21.9 Gastro-esophageal reflux disease without esophagitis
CPT/HCPCS: 36415; 72170; 80048; 82948; 85014; 85018; 85025; 86850; 86900; 86920; J0171; J1100; J1885; J2001; J2250; J2405; J2795; J3370; J7030; J7040

== ENCOUNTER → 2019-07-25 | Day surgery (SDC) | payer MEDICARE ==
[2019-07-22 15:15] LABS: BASOPHILS % 0.7 % (0.0-1.0); EOSINOPHILS # (AUTO) 0.1 (0.0-0.4); EOSINOPHILS % 2.4 % (0.0-6.0); HEMATOCRIT 36.7 % (34.2-44.1); HEMOGLOBIN 11.6 g/dL (12.0-16.0); LYMPHOCYTES # (AUTO) 2.1 (1.0-3.2); LYMPHOCYTES % 39.2 % (18.0-39.1); MEAN CORPUSCULAR HEMOGLOBIN 26.8 pg (28-32); MEAN CORPUSCULAR HGB CONC 31.6 g/dL (31-35); MEAN CORPUSCULAR VOLUME 84.8 fL (81-99); MONOCYTES # (AUTO) 0.4 (0.2-0.8); MONOCYTES % 7.9 % (4.4-11.3); NEUTROPHILS # (AUTO) 2.7 (2.1-6.9); NEUTROPHILS % 49.6 % (38.7-80.0); PLATELET COUNT 218 x10e3/uL (140-360); RED BLOOD COUNT 4.33 x10e6/uL (3.6-5.1); RED CELL DISTRIBUTION WIDTH 16.6 % (11.7-14.4)
[2019-07-22 15:35] LABS: ALBUMIN 3.5 g/dL (3.5-5.0); ALBUMIN/GLOBULIN RATIO 1.1 (0.8-2.0); CALCIUM 8.9 mg/dL (8.4-10.2); CREATININE, SERUM 0.95 mg/dL (0.57-1.11)
[2019-07-25] VITALS (12 sets, daily range): BP systolic 105–171; BP diastolic 58–88
[~2019-07-25] VITALS: Ht 154.9 cm; Wt 95.3 kg
[~2019-07-25] MED LIST changes: +ASPIRIN 325 MG TAB ONE; +CLOPIDOGREL BISULFATE 75 MG TAB ONE; +FENTANYL CITRATE/PF 100MCG/2 ML INJ ONE; +HEPARIN SOD (PORCINE) 1000 UNIT/ML 30ML ONE; +HEPARIN SOD/SOD CHLORIDE 2,000 ML ONE; +IOPAMIDOL 370 MG/ML 200 ML INFUS..BTL INJ ONE; +LIDOCAINE HCL 2% LOCAL 20 ML VIAL ONE; +MIDAZOLAM HCL 2 MG/2 ML VIAL ONE; +SODIUM CHLORIDE 0.9% 1000ML 1,000 ML ONE; +VERAPAMIL HCL 2.5 MG/ML 2 ML VIAL ONE
--- OUTSIDE RECORDS SUMMARY | 2019-07-25 08:20 | XMS REPORT | Clinical Summary ---
Author Author [facility] Organization [facility] [facility] Address Unknown Phone Unavailable Care Team Providers Care Sales And Marketing Analyst Name Role Phone Stephon Guzman PCP Allergies Comments Active Allergy Reactions Severity [...] Specialty Kurt Corona MD Luczak, Swetha Cavazos, PANorbert Pain of lower extremity, unspecified laterality (Primary Dx); Venous insufficiency 09/02/2018 Office Visit Cardiovascular Lesley Bueno MA Swelling of lower leg (Primary Dx) 07/29/2018 Orders Only Cardiovascular after 07/24/2018 Family History Medical History Relation Name Comments [...] travel history available. Last Filed Vital Signs Reading Time Taken Comments Vital Sign 156/77 09/02/2018 4:57 PM ASSISTANT SALES CENTER MANAGER Blood Pressure 62 09/02/2018 4:57 PM ASSISTANT SALES CENTER MANAGER Pulse - - Temperature 12 09/02/2018 4:57 PM ASSISTANT SALES CENTER MANAGER Respiratory Rate 98% 09/02/2018 4:57 PM ASSISTANT SALES CENTER MANAGER Oxygen Saturation - - Inhaled Oxygen Concentration 90.9 kg (200 lb 8 oz) 09/02/2018 4:57 PM ASSISTANT SALES CENTER MANAGER Weight 154.9 cm (5' 1") 09/02/2018 4:57 PM ASSISTANT SALES CENTER MANAGER Height 37.88 09/02/2018 4:57 PM ASSISTANT SALES CENTER MANAGER Body Mass Index Plan of Treatment Health Maintenance Due Date Last Done Comments BREAST CANCER SCREENING 1999 COLONOSCOPY SCREENING 1999 SHINGLES VACCINES (#1) 1999 65+ PNEUMOCOCCAL VACCINE 2014 (1 of 2 - PCV13) INFLUENZA VACCINE 05/26/2019 Procedures Comments Procedure Name Priority Date/Time Associated Diagnosis US DUPLEX VENOUS LOWER Routine 09/02/2018 Swelling of lower leg EXTREMITY REFLUX 2:38 PM ASSISTANT SALES CENTER MANAGER BILATERAL after 07/24/2018 Results * Us duplex venous lower extremity reflux (09/02/2018 2:38 PM ASSISTANT SALES CENTER MANAGER) Specimen Narrative Performed At [facility] Lower Extremity Venous Duplex Report [address] [place] [address], [address], [place] [address] [facility].Name:[facility] JUSTICE.ID:[id number] St.Date: 09/02/2018 Refer.MD:KURT CORONA MD Exam Time: 1:27:00 PMStudy Type:LE Venous Height:61inWeight:200.5l b BSA: 1.89 m2 DOBAge:1950,68Y Sex: FEMALESonogrphr: Felisa Coats RVT TapeVol: , [facility] - 4: 94871 Echo Event ID:[id number] Order ID:[id number] Reason for Study:Right lower extremity swelling and [...] Radiology Results In - 09/17/2018 5:47 PM [facility] Lower Extremity Venous Duplex Report [address] [place] [address], [address], [place] [address] Pat.Name: FREDDIE ITZEL Pat.ID: [id number] St.Date: 09/02/2018 Refer.MD: KURT CORONA MD Exam Time: 1:27:00 PM Study Type:LE Venous Height: 61in Weight: 200.5lb BSA: 1.89 m2 Age: 9 1950,68Y Sex: FEMALE Sonogrphr: Felisa Luis Albertotan RVManuel Tape Vol: TG, CPT - 4: 71878 Echo Event ID:[id number] Order ID: [id number] Reason for Study:Right lower extremity swelling and [...] 09/17/2018 05:47 PM Kurt Corona MD, RPVI Performing Organization Address City/State/Zipcode Phone Number [address] [place] [address] after 07/24/2018 Insurance Type Payer Benefit Subscriber ID Effective Phone Address Plan / Dates Group HMO [employer] CIGNA xxxxxxxx [id number] [employer] resent NG O MCR ADV Advance Directives For more information, please contact: [phone] Patient Photogrammetric Technician Explanation Type Date Recorded Advance Directives, Living Will and Medical Power of Dental Technician Apprentice
--- NOTE | 2019-07-25 12:00 | NUR ---
Continuity of care to recovery, review of procedural findings and medications given. Patient drowsy, easily aroused. maintains airway and room air saturations of 98-99%. No gross issues of pressure, pain, pallor or dysrhythmia. IV site patent with NS 0.9% at 100ml/hr by dial-flow. patient hemodynamically stable with hemostasis to right radial dressing CDI w/o s/s of bleeding. patient transferred to stretcher under own strength w/o incident. transported to [facility] holding room 9- cgf procedure: LHC and coronary angiography with RCA stent post DFR Sheath puller: Nicole MENTAL HEALTH PRACTITIONER TR band 12ml/hr Meds Given Intra-Procedure Sedatives Versed - 2 mg Fentanyl - 50 mcg Radial Cocktail IA Heparin 3000 units Verapamil - 2.5mg Nitro 200mcg Anticoagulants Heparin - 6000 Units Fluids Input - 300 ml Output - DTV Contrast Isovue 300 - 80 ml Other Meds Plavix 600mg PO Aspirin 325 mg
--- NOTE | 2019-07-25 12:37 | NUR ---
report off to Kashif Wan RN of above facts. pt currently awaiting meal tray, right radial remains with + neurovascular function w/o gross deficits. Friend at bedside. -cgf
--- NOTE | 2019-07-25 14:12 | NUR ---
assume of care from Kashif Elam RN. TR band removal process in earnest. VS trend WNL for patient. + right radial neurovascular function present. No gross issues at this time.- cgf
--- NOTE | 2019-07-25 16:05 | NUR ---
Pt meets DC criteria. right radial assessed for s/s of complication and presence of hematoma. overall skin warm, dry, no discolor, and pulses present. IV removed from left forearm by Lizbeth HUMAN RESOURCES COMPENSATION ANALYST. Distal tip appears intact. VS WNL. Pt denies pain, sob, or need at this time. Family at bedside. Review of discharge paperwork and follow up instructions. verbalized understanding. Pt to wheelchair and transported to front of hospital. Transferred to private vehicle under own strength w/o incident with DC paperwork in hand. - cgf
--- NOTE | 2019-09-19 16:47 | Operative Report ---
DATE OF PROCEDURE: 07/25/2019 SURGEON: Ananda Trevizo MD INDICATION FOR PROCEDURE: Unstable angina. PREPROCEDURE ASSESSMENT: Risks, benefits, and alternatives of treatment were explained to the patient prior to the procedure. Informed consent was obtained and documented in the medical record. PROCEDURES PERFORMED: 1. Coronary angiography. 2. Left heart catheterization. 3. FFR to RCA. 4. PCI to the RCA using drug-eluting stent x1. PROCEDURE DETAILS: The patient was brought to the cardiac catheterization laboratory in a fasting state. Right wrist was prepped and draped in sterile fashion. A 6-Maltese Slender sheath was inserted in the right radial artery using modified Seldinger technique. Coronary angiography was performed using 5-Maltese Arlyn radial catheter to engage both the left and right coronary systems. Left heart catheterization was performed using pigtail catheter. Coronary angiography demonstrated patent RCA stent, but 60% to 70% lesion distal to the stent in the distal RCA. We decided to perform FFR. IV boluses of heparin were given to achieve ACT near 300. A JR4 guide was used to engage the RCA. FFR wire was used to cross the lesion. Standard VFR was performed, which was 0.87. This was significant for hemodynamically flow-limiting stenosis. We proceeded to perform PCI to the RCA with Synergy 3.0 x 28 mm drug-eluting stent. This provided excellent angiographic result without residual dissection, thrombus, or spasm. The patient tolerated the procedure well. There were no immediate complications. All catheters were removed over a wire. Loading dose of aspirin and Plavix were given in the laboratory miller. SIGNIFICANT FINDINGS: A 60% to 70% lesion of the distal RCA. VFR significant and 0.87 with PCI to the RCA STEVE x1 performed. The patient has a right dominant coronary system with no significant disease otherwise to the left coronary system. LVEDP was 8 mmHg without significant gradient across the aortic valve. GRAFTS AND IMPLANTS: STEVE x1. SPECIMEN REMOVED: None. ESTIMATED BLOOD LOSS: 20 mL. COMPLICATIONS: None. FINAL RECOMMENDATIONS: 1. Continue aspirin and Plavix. 2. Follow up in clinic 2 weeks post discharge. Aannda Trevizo MD KVP/MODL /[id number]
== END | disposition home or self-care (01) ==
LOC: CATH LAB 08:16
PROVIDERS: ATTEND Internal Medicine
DX: I25.110 Atherosclerotic heart disease of native coronary artery with unstable angina pectoris (principal); I25.2 Old myocardial infarction; E13.8 Other specified diabetes mellitus with unspecified complications; Z01.812 Encounter for preprocedural laboratory examination; Z79.82 Long term (current) use of aspirin; Z68.41 Body mass index [BMI] 40.0-44.9, adult; Z95.5 Presence of coronary angioplasty implant and graft; Z82.49 Family history of ischemic heart disease and other diseases of the circulatory system
CPT/HCPCS: 93458; 93571; C9600; 36415; 80053; 85025; 92928; C1753; C1769; C1874; C1887; J1644; J2001; J2250; J3010; J7030; Q9967

== ENCOUNTER → 2020-07-12 | Outpatient (CLI) | payer MEDICARE ==
[~2020-07-12] MED LIST changes: -ASPIRIN 325 MG TAB ONE; -CLOPIDOGREL BISULFATE 75 MG TAB ONE; -FENTANYL CITRATE/PF 100MCG/2 ML INJ ONE; -HEPARIN SOD (PORCINE) 1000 UNIT/ML 30ML ONE; -HEPARIN SOD/SOD CHLORIDE 2,000 ML ONE; -IOPAMIDOL 370 MG/ML 200 ML INFUS..BTL INJ ONE; -LIDOCAINE HCL 2% LOCAL 20 ML VIAL ONE; -MIDAZOLAM HCL 2 MG/2 ML VIAL ONE; +REGADENOSON 0.4 MG/5 ML SYR IV ONE; -SODIUM CHLORIDE 0.9% 1000ML 1,000 ML ONE; -VERAPAMIL HCL 2.5 MG/ML 2 ML VIAL ONE
--- NOTE | 2020-07-13 04:58 | Myoview Stress Test ---
DATE OF STUDY: 07/12/2020 08:52:00 Stress Test - Treadmill ONLY PROCEDURE TITLE: Rest/stress single isotope SPECT imaging with pharmacologic stress and gated SPECT imaging. INDICATION: Chest pain. PROCEDURE IN DETAIL: Pharmacologic stress testing was performed with regadenoson per protocol. The heart rate was 62 beats per minute at rest increased to 95 beats per minute during the regadenoson infusion. The resting blood pressure was 184/78 mmHg and decreased to 150/66 mmHg, which is normal response. The resting electrocardiogram demonstrated normal sinus rhythm. There were no ST-segment changes suggestive of myocardial ischemia. Myocardial perfusion imaging was performed at rest following the injection of 11 mCi of tetrofosmin. At peak pharmacologic effect, the patient was injected with 32.3 millicurie of tetrofosmin. Gated post-stress tomographic imaging was performed. FINDINGS: The overall quality of the study is fair. Left ventricular cavity is noted to be normal size on the rest and stress studies. SPECT images demonstrate a small mild perfusion defect in the anterior wall on rest and stress. Gated SPECT imaging reveals normal myocardial thickening and wall motion. The left ventricular ejection fraction was calculated to be 63%. IMPRESSION: Myocardial perfusion imaging is abnormal. There is a small nontransmural scar in the anterior wall, cannot rule out artifact. Overall, left ventricular systolic function was normal without regional wall motion abnormalities. Cathy Guadalupe MD ABS/MODL /[id number]
== END ==
LOC: NM 08:43
PROVIDERS: ATTEND Internal Medicine
DX: R07.9 Chest pain, unspecified (principal); R06.02 Shortness of breath
CPT/HCPCS: 78452; 93017; 93306; A9502

== ENCOUNTER → 2020-08-10 | Day surgery (SDC) | payer MEDICARE, OTHER ==
[2020-08-07 15:58] LABS: BASOPHILS % 0.7 % (0.0-1.0); EOSINOPHILS # (AUTO) 0.1 (0.0-0.4); EOSINOPHILS % 1.9 % (0.0-6.0); HEMATOCRIT 38.7 % (34.2-44.1); HEMOGLOBIN 11.9 g/dL (12.0-16.0); LYMPHOCYTES # (AUTO) 1.8 (1.0-3.2); LYMPHOCYTES % 33.6 % (18.0-39.1); MEAN CORPUSCULAR HEMOGLOBIN 26.8 pg (28-32); MEAN CORPUSCULAR HGB CONC 30.7 g/dL (31-35); MEAN CORPUSCULAR VOLUME 87.2 fL (81-99); MONOCYTES # (AUTO) 0.3 (0.2-0.8); MONOCYTES % 6.3 % (4.4-11.3); NEUTROPHILS # (AUTO) 3.1 (2.1-6.9); NEUTROPHILS % 57.3 % (38.7-80.0); PLATELET COUNT 244 x10e3/uL (140-360); RED BLOOD COUNT 4.44 x10e6/uL (3.6-5.1); RED CELL DISTRIBUTION WIDTH 14.9 % (11.7-14.4)
[2020-08-07 16:08] LABS: INR 0.99; PROTHROMBIN TIME 13.6 seconds (11.9-14.5)
[2020-08-07 16:20] LABS: ALANINE AMINOTRANSFERASE 16 IU/L (0-55); ALBUMIN 3.5 g/dL (3.5-5.0); ALBUMIN/GLOBULIN RATIO 1.2 (0.8-2.0); ALKALINE PHOSPHATASE 121 IU/L (40-150); ANION GAP 11.9 mmol/L (8-16); BLOOD UREA NITROGEN 10 mg/dL (7-26); BUN/CREATININE RATIO 11 (6-25); CALCIUM 8.2 mg/dL (8.4-10.2); CARBON DIOXIDE 25 mmol/L (22-29); CHLORIDE 108 mmol/L (98-107); CREATININE, SERUM 0.91 mg/dL (0.57-1.11); EST GLOMERULAR FILTRATION RATE > 60 ML/MIN (60-); GLUCOSE 110 mg/dL (74-118); POTASSIUM 3.9 mmol/L (3.5-5.1); SODIUM 141 mmol/L (136-145)
[2020-08-10] VITALS (8 sets, daily range): BP systolic 93–205; BP diastolic 55–93
[~2020-08-10] VITALS: Ht 154.9 cm; Wt 90.7 kg
[~2020-08-10] MED LIST changes: +FENTANYL CITRATE/PF 100MCG/2 ML INJ ONE; +HEPARIN SOD/SOD CHLORIDE 2,000 ML ONE; +IOPAMIDOL 370 MG/ML 200 ML INFUS..BTL INJ ONE; +LIDOCAINE HCL 2% LOCAL 20 ML VIAL ONE; +MIDAZOLAM HCL 2 MG/2 ML VIAL ONE; +OXYBUTYNIN CHLOR5 MG PO; +PEPCID AC10 MG PO; -REGADENOSON 0.4 MG/5 ML SYR IV ONE; +SODIUM CHLORIDE 0.9% 1000ML 1,000 ML ONE
--- NOTE | 2020-08-10 10:55 | NUR ---
1055 am RECEIVING NOTE AIR TRAFFIC CONTROL SPECIALIST RECOVERY DEPT............................................................... Bedside report received from OYVANA Garcia. Identifierx2. Alert oriented and appropriate, PERRLA, respirations even and unlabored to room air. Pulses x4 extremities equal and strong. Pedal pulses PT/DP X4 and weak palpable Cap fill brisk < 3 sec. Tr band approach Skin warm and dry integrity appears D/I IV 20g to left hand iv 10cchr presents healthy w/o s/s of infiltration or complaint. Abdomen soft and supple. pt offered toileting, denies need to urinate or defecate. No personal affects with patient. Family XXXXX. Pt and family verbalizes understanding of POC. Currently w/o complaint of pain or need. fransico/yovana
--- NOTE | 2020-08-10 12:00 | NUR ---
1200 RADIAL Compression removal: Initial Cuff volume 14 cc 12n -2cc Removed No hematoma/bleeding noted with normal neurovascular function. 1215 -2 cc Removed No hematoma/ bleeding noted with normal neurovascular function. 1230 -5 cc Removed No hematoma/bleeding noted with normal neurovascular function. 1245 -5 cc Removed No hematoma/ bleeding noted with normal neurovascular function. Air removal completed. Stasis achieved sterile 2x2,Tegaderm, Coban dressing No hematoma, bleeding noted with normal neurovascular function. Pt instructed on POC. Ds/Rn
--- NOTE | 2020-08-10 13:00 | NUR ---
1300pm UNIFORM ROOM ATTENDANT RECOVERY DISCHARGE NURSING NOTE Pt meets DC criteria. Rt TR band site assessed for s/s of complication and presecence of hematoma. Skin warm, dry, no discolor, and pulses present. IV removed from left hand. Distal tip appears intact. VS WNL. Pt denies pain, sob, or need at this time. Family at bedside. Review of discharge paperwork and follow up instructions. verbalized understanding. Pt to wheelchair and transported to front of hospital. Transferred to private vehicle under own strength w/o incident with DC paperwork in hand. - fransico/venita
--- NOTE | 2020-08-27 16:16 | Operative Report ---
DATE OF PROCEDURE: 08/10/2020 SURGEON: Ananda Trevizo MD INDICATIONS FOR PROCEDURE: Chest pain and abnormal stress test. PREPROCEDURE ASSESSMENT: The risks, benefits, and alternatives of treatment were explained to the patient prior to the procedure. The patient is considered a good candidate for moderate sedation. Informed consent was obtained and documented in the medical record. MEDICATIONS: Please see nursing notes for medications administered throughout the procedure. PROCEDURES PERFORMED: 1. Coronary angiography. 2. Left heart catheterization, right radial approach. 3. Moderate sedation time, 30 minutes. PROCEDURE DETAILS: The patient was brought to the cardiac catheterization laboratory in a fasting state. Right wrist was prepped and draped in a sterile fashion. A 6-German sheath was inserted in the right radial artery using modified Seldinger technique. Coronary angiography was performed using a 5-German Invrep radial catheter to engage both the left and right coronary arteries. This demonstrated patent RCA stents with minimal in-stent restenoses and stable 50% to 60% stenosis of the proximal LAD. Given the change in patient's symptoms, we decided to proceed with DFR of the proximal LAD. For DFR, an XB 3.0 guide catheter was used, which provided adequate support. FFR wire was used to cross the lesion. DFR was performed and calculated to be 0.95, which is not significant for hemodynamic stenosis. Wire was removed. Angiogram demonstrated no complications. Cardiac catheter was removed. Access site was closed using a TR band device. GRAFTS AND IMPLANTS: None. SPECIMEN REMOVED: None. ESTIMATED BLOOD LOSS: 20 mL. SIGNIFICANT FINDINGS: Right dominant system, patent RCA stents, no significant CAD, 50% stenosis of the proximal LAD with DFR of 0.95 to nonsignificant. LVEDP of 27. No gradient across the aortic valve. FINAL RECOMMENDATIONS: Continue optimal medical therapy and risk factor control. Followup in the office 2 weeks post procedure. Ananda Trevizo MD KVP/MODL /[id number]
== END | disposition home or self-care (01) ==
LOC: CATH LAB 07:12
PROVIDERS: ATTEND Internal Medicine
DX: I25.10 Atherosclerotic heart disease of native coronary artery without angina pectoris (principal); R94.39 Abnormal result of other cardiovascular function study; Z01.812 Encounter for preprocedural laboratory examination; Z20.828 Contact with and (suspected) exposure to other viral communicable diseases; Z79.82 Long term (current) use of aspirin; Z79.02 Long term (current) use of antithrombotics/antiplatelets; Z95.5 Presence of coronary angioplasty implant and graft
CPT/HCPCS: 36415; 80053; 85025; 85610; 93458; C1753; C1769; C1887; J2001; J2250; J3010; J7030; Q9967; U0002; 93571; 99152; 99153

== ENCOUNTER 2022-12-30 11:01 | Emergency (ER) | payer BC, OTHER ==
[~2022-12-30] VITALS: Ht 154.9 cm; Wt 90.7 kg
[~2022-12-30 11:01] MED LIST changes: -FENTANYL CITRATE/PF 100MCG/2 ML INJ ONE; -HEPARIN SOD/SOD CHLORIDE 2,000 ML ONE; -IOPAMIDOL 370 MG/ML 200 ML INFUS..BTL INJ ONE; -LIDOCAINE HCL 2% LOCAL 20 ML VIAL ONE; -MIDAZOLAM HCL 2 MG/2 ML VIAL ONE; -SODIUM CHLORIDE 0.9% 1000ML 1,000 ML ONE
[2022-12-30 12:24] LABS: CLARITY,URINE CLOUDY (CLEAR); COLOR,URINE YELLOW (YELLOW); KETONES,URINE NEGATIVE (NEGATIVE); LEUKOCYTE ESTERASE ,URINE MODERATE (NEGATIVE); NITRITE,URINE NEGATIVE (NEGATIVE); PROTEIN,URINE DIPSTICK TRACE (NEGATIVE); URINE UROBILINOGEN 1 mg/dL (0.2 - 1)
[2022-12-30 12:39] LABS: BACTERIA,URINE MODERATE /HPF; EPITHELIAL CELLS,URINE RARE /LPF; RBC,URINE 0-5 /HPF (0-5); WBC,URINE (MAN) >50 /HPF (0-5)
[2022-12-30] MEDS ORDERED: CEFDINIR300 MG PO (12:58)
[2022-12-30] MEDS ORDERED: CEFDINIR 300 MG CAP PO ONE (13:00)
[2022-12-30] MEDS ORDERED: CEFDINIR 300 MG CAP ONE (13:12)
== END 2022-12-30 14:05 | disposition home or self-care (01) ==
LOC: ER 11:10
DX: R30.0 Dysuria (principal); N39.0 Urinary tract infection, site not specified; R10.30 Lower abdominal pain, unspecified; I10 Essential (primary) hypertension; E78.5 Hyperlipidemia, unspecified; I25.10 Atherosclerotic heart disease of native coronary artery without angina pectoris; I25.2 Old myocardial infarction
CPT/HCPCS: 81001; 87086; 87186; 99283

== ENCOUNTER → 2023-04-08 | Outpatient (CLI) | payer MEDICARE ==
[~2023-04-08] MED LIST changes: +CEFDINIR300 MG PO; +REGADENOSON 0.4 MG/5 ML SYR IV ONE
== END ==
LOC: NM 08:42
PROVIDERS: ATTEND Internal Medicine
DX: R07.9 Chest pain, unspecified (principal); I25.10 Atherosclerotic heart disease of native coronary artery without angina pectoris
CPT/HCPCS: 78452; 93017; 93306; A9502; J2785